=== PATIENT | male | born 1930 | race Caucasian/White ===

== ENCOUNTER 2016-11-26 04:57 | Emergency (ER) | payer OTHER ==
[~2016-11-26] VITALS: Ht 172.7 cm; Wt 69.9 kg
[~2016-11-26 04:57] MED LIST: ALBUTEROL0.09 MG/A1 INH; ALBUTEROL1.25 MG/3 INH; ASPIR 8181 MG PO; ATORVASTATIN CA40 MG PO; AUGMENTIN 875 M1 TAB PO; CALCIUM1 TAB PO; CLOPIDOGREL75 MG PO; FISH OIL CONCEN1 SGL; GABAPENTIN300 MG PO; LISINOPRIL20 MG PO; LOPRESSOR 25MG25 MG PO; MULTIVITAMIN1 SGL; PERCOCET 325 MG1 TA2 PO; PRILOSEC20 MG PO; PROTONIX 40MG T40 MG PO
--- NOTE | 2016-11-26 05:01 | ED UPPER/LOWER EXTREMITY COMPL ---
History of Present Illness General Chief Complaint: Lower Extremity Problems Stated Complaint: LEFT LEG,FOOT PAIN Source: patient Exam Limitations: no limitations Vital Signs & Intake/Output Vital Signs & Intake/Output Vital Signs Date Time Temp Pulse Resp B/P Pulse O2 O2 Flow FiO2 Ox Delivery Rate 11/26 1230 99.0 109 18 161/89 11/26 1230 99.0 109 18 161/89 11/26 1048 99.0 109 18 161/89 96 Room Air 11/26 0851 100.3 104 18 164/79 96 Room Air 11/26 0650 97.2 84 18 130/69 97 Room Air 11/26 0500 97.3 83 18 161/74 97 Room Air Allergies Coded Allergies: NO KNOWN ALLERGIES (06/20/12) Reconcile Medications Albuterol Sulfate (Albuterol Sulfate Hfa) 90 MCG HFA.AER.AD 2 PUFF INH Q4-6 PRN PRN SHORTNESS OF BREATH 90 MCG PER PUFF Albuterol Sulfate (Albuterol Sulfate Nebulizer Soln) 1.25 MG/3 ML VIAL.NEB 1 UNIT INH Q4P PRN sob AMOXICILLIN/POTASSIUM CLAV (Augmentin 875-125 Tablet) 875 MG/125 MG TAB 1 TAB PO BID INFECTION PREVENTION Aspirin (Ecotrin) 81 MG TABLET.DR 1 TAB PO DAILY blood thinner (Reported) Atorvastatin Calcium (Lipitor) 40 MG TABLET 1 TAB PO DAILY CHOLESTEROL ( Reported) Calcium/Sodium (Calcium) 1 TAB TAB BONE HEALTH (Reported) CLOPIDOGREL BISULFATE (Clopidogrel) 75 MG TABLET 1 TAB PO EOD CARDIAC STENT ( Reported) Gabapentin 300 MG CAPSULE 300 MG PO BID NEUROPATHY (Reported) Lisinopril 20 MG TABLET 1 TAB PO 3XW HTN (Reported) TAKE M-- Metoprolol Tartrate (Lopressor) 25 MG TABLET 1 TAB PO BID HEART HEALTH/BP ( Reported) MULTIVITAMIN (Multivitamins) 1 EACH CAPSULE HEALTH SUPPLEMENT (Reported) OMEGA-3 FATTY ACIDS (Fish Oil Concentrate) 1,000 MG CAPSULE SWELLING (Reported) Oxycodone HCl/Acetaminophen (Percocet 5-325 MG Tablet) 5 MG-325 MG TABLET 0.5 TAB PO 4XDP PRN PAIN TEN...[id number] Pantoprazole Sodium (Protonix) 40 MG TABLET.DR 1 TAB PO DAILY AC GERD Triage Nurses Notes Reviewed? yes Onset: Abrupt Duration: hour(s): Timing: recent history Severity: moderate Pain/Injury Location: Right: Foot. Method of Injury: unknown Modifying Factors: Improves With: rest. Worsens With: movement. Associated Symptoms: "Pain when I walk" HPI: 86 yo gentleman presents with left foot pain since last night. He notes the pain is at the bottom of his foot. He does not recall any trauma or injury. "But I might have twisted my foot at some point." He notes no swelling, warmrth, or focal bony pain. (PARDEEP CORLEY MD) Past History Travel History Traveled to [place] past 21 day No Medical History Any Pertinent Medical History? 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 SISTER (cancer but patient doesnt know what kind of cancer it is). Hx Contributory? No (PARDEEP CORLEY MD) Review of Systems Review of Systems Constitutional: Reports: no symptoms. EENTM: Reports: no symptoms. Respiratory: Reports: no symptoms. Cardiovascular: Reports: no symptoms. Gastrointestinal/Abdominal: Reports: no symptoms. Genitourinary: Reports: no symptoms. Musculoskeletal: Reports: no symptoms. Skin: Reports: no symptoms. Neurological/Psychological: Reports: no symptoms. Hematologic/Endocrine: Reports: no symptoms. Immunological: Reports: no symptoms. All Other Systems: Reviewed and Negative (PARDEEP CORLEY MD) Physical Exam Physical Exam General Appearance: well developed/nourished, mild distress Head: atraumatic Eyes: Bilateral: normal appearance. Ears, Nose, Throat: normal pharynx, normal ENT inspection, hearing grossly normal Neck: normal inspection, supple Cardiovascular/Respiratory: regular rate/rhythm Back: normal inspection Foot Left: focal pain at the insertion of the plantar fascia into the calcaneus. no tenderness at malleolus. ROM is normal. Skin: intact, normal color, warm/dry Lymphatic: no anterior cervical jie (PARDEEP CORLEY MD R.) Progress Differential Diagnosis: gout, sprain, tendon injury, plantar fasciitis Plan of Care: Orders Procedure Date/time Status Regular Diet 11/26 L Complete Regular Diet 11/26 D Active PT Evaluate & Treat 11/26 526 Active CASE MANAGEMENT CONSULT 11/26 526 Active Current Medications Sig/[place] Start time Last Medication Dose Stop Time Status Admin Aspirin 81 MG ONCE ONE 11/26 1200 CAN (Aspirin) 11/26 1201 Laboratory Tests 11/26/16 1143: Sodium Cancelled, Potassium Cancelled, Chloride Cancelled, Carbon Dioxide Cancelled, Anion Gap Cancelled, BUN Cancelled, Creatinine Cancelled, BUN/ Creatinine Ratio Cancelled, Glucose Cancelled, Calcium Cancelled, Total Bilirubin Cancelled, AST Cancelled, ALT Cancelled, Alkaline Phosphatase Cancelled, Total Protein Cancelled, Albumin Cancelled, Globulin Cancelled, Albumin/Globulin Ratio Cancelled, CBC w Diff Cancelled, WBC Cancelled, RBC Cancelled, Hgb Cancelled, Hct Cancelled, MCV Cancelled, MCH Cancelled, RDW Cancelled, Plt Count Cancelled, MPV Cancelled, PUBS MCHC Cancelled, Urine Color Cancelled, Urine Clarity Cancelled, Urine pH Cancelled, Ur Specific [place] Cancelled, Urine Protein Cancelled, Urine Ketones Cancelled, Urine Nitrite Cancelled, Urine Bilirubin Cancelled, Urine Urobilinogen Cancelled, Ur Leukocyte Esterase Cancelled, Ur Microscopic Cancelled, Urine Hemoglobin Cancelled, Urine Glucose Cancelled Diagnostic Imaging: Viewed by Me: Radiology Read. Discussed w/RAD: Radiology Read. Radiology Impression: left ankle... no fx. Hand-Off Endorsed To: JAGDISH PRIEST MD Endorsed Time: 0700 Pending: consult Comments: PATIENT: YANI WAY PRESENT AGE: 86 PATIENT ACCOUNT NO: [id number] : 32 LOCATION: [facility] ORDERING PHYSICIAN: PARDEEP CORLEY MD SERVICE DATE: 11/26/16 EXAM TYPE: RAD - XRY-ANKLE 3 OR MORE VIEWS L EXAMINATION: XR ANKLE, LEFT CLINICAL INFORMATION: Left ankle/foot pain. COMPARISON: None. TECHNIQUE: AP, lateral, and mortise views of the left ankle were obtained. FINDINGS: Soft tissues are swollen around the ankle. No fracture or malalignment. Ankle mortise is symmetric. No significant joint effusion. Calcific atherosclerosis is present within the arteries of the lower leg and ankle. IMPRESSION: 1. No acute fracture or malalignment. 2. Soft tissue swelling around the ankle. DICTATED BY: MARANDA VITAL MD DATE/TIME DICTATED:11/26/16616 INVESTMENT SALES ASSISTANT:ANIKET DATE/TIME TRANSCRIBED:11/26/16616 CONFIDENTIAL, DO NOT COPY WITHOUT APPROPRIATE AUTHORIZATION. <Electronically signed in Other Vendor System> SIGNED BY: MARANDA VITAL MD 11/26/16621 (JORY SHELL,PARDEEP Ahmadi) Comments: Able to ambulate with walker. Pain controlled with percocet, post op shoe. D/W Dr. Andrade tramadol for intermediate pain (JAGDISH PRIEST MD) Departure Departure Disposition: HOME OR SELF CARE Condition: Stable Clinical Impression Primary Impression: Plantar fasciitis of left foot Referred to [facility] as new patient No Departure Forms: Customer Survey General Discharge Information Comments pt has difficulty walking... pt merits pt/ot/casemanagement eval for safety. (JORY SHELL,PARDEEP Ahmadi) Departure Referrals: SHELLEY ANDRADE MD (PCP/Family) CAROLEE FRANCO DPM Call for podiatry follow up Prescriptions: Current Visit Scripts Oxycodone HCl/Acetaminophen (Percocet 5-325 MG Tablet) 0.5 TAB PO 4XDP PRN PAIN #10 TAB TEN...[id number] Tramadol HCl (Ultram) 1 TAB PO Q6PRN PRN moderate pain #30 TAB (JAGDISH PRIEST MD)
[2016-11-26] MEDS ORDERED: PERCOCET 5-3251 EACH PO (05:31)
--- NOTE | 2016-11-26 06:22 | RADIOLOGY REPORT ---
EXAMINATION: XR ANKLE, LEFT CLINICAL INFORMATION: Left ankle/foot pain. COMPARISON: None. TECHNIQUE: AP, lateral, and mortise views of the left ankle were obtained. FINDINGS: Soft tissues are swollen around the ankle. No fracture or malalignment. Ankle mortise is symmetric. No significant joint effusion. Calcific atherosclerosis is present within the arteries of the lower leg and ankle. IMPRESSION: 1. No acute fracture or malalignment. 2. Soft tissue swelling around the ankle.
[2016-11-26] MEDS ORDERED: ULTRAM50 M1 PO (13:33)
[2016-11-26 13:44] VITALS: BP 153/78
== END 2016-11-26 13:45 ==
LOC: ERH 04:57
DX: M72.2 Plantar fascial fibromatosis (principal); M79.672 Pain in left foot
CPT/HCPCS: 73610-LT; 97001-GP; 97110-GP; 97116-GP; 97161-GP; G8978-GP; G8979-GP; G8980-GP

== ENCOUNTER 2018-06-18 20:12 | Emergency (ER) | payer OTHER, MEDICARE ==
[~2018-06-18 20:12] MED LIST changes: +PERCOCET 5-3251 EACH PO; +ULTRAM50 M1 PO
[2018-06-18] MEDS ORDERED: CALTRATE 600 +1 EACH PO (21:23)
[2018-06-18] MEDS ORDERED: CLOPIDOGREL75 M1 PO (21:23)
[2018-06-18] MEDS ORDERED: FISH OIL 1,2001 EAC2 PO (21:23)
[2018-06-18] MEDS ORDERED: PERCOCET 5-3251 EACH PO (21:24)
[2018-06-18] MEDS ORDERED: PRINIVIL10 M1 PO (21:24)
[2018-06-18] MEDS ORDERED: VITAMIN B-121000 MC2 SL (21:25)
[2018-06-18] MEDS ORDERED: LIPITOR40 M1 PO (21:25)
[2018-06-18] MEDS ORDERED: METOPROLOL TART25 M1 PO (21:26)
[2018-06-18] MEDS ORDERED: GABAPENTIN300 M2 PO (21:26)
[2018-06-18] MEDS ORDERED: NITROSTAT0.4 M1 SL (21:27)
[2018-06-18] MEDS ORDERED: SENNA8.6 M3 PO (21:27)
[2018-06-18] MEDS ORDERED: ATHENOL325 MG PO (21:28)
--- NOTE | 2018-06-18 23:14 | ED THROAT/DENTAL COMPLAINT ---
History of Present Illness General Chief Complaint: Facial or Head Injury Stated Complaint: BIBA ORAL BLEEDING Source: patient, family, old records Exam Limitations: no limitations Vital Signs & Intake/Output Vital Signs & Intake/Output Vital Signs Date Time Temp Pulse Resp B/P B/P Pulse O2 O2 Flow FiO2 Mean Ox Delivery Rate 06/18 2338 84 18 151/78 Room Air 06/18 2036 98.8 100 18 160/86 95 Room Air Allergies Coded Allergies: NO KNOWN ALLERGIES (06/20/12) Reconcile Medications Acetaminophen (Athenol) 325 MG TABLET 2 TAB PO Q4H PRN PAIN (Reported) Atorvastatin Calcium (Lipitor) 40 MG TABLET 1 TAB PO DAILY CHOLESTEROL ( Reported) Calcium Carbonate/Vitamin D3 (Caltrate 600 + D Tablet) 600 MG-800 TABLET 1 TAB PO 0600 SUPPLEMENT (Reported) Clopidogrel Bisulfate (Clopidogrel) 75 MG TABLET 1 TAB PO DAILY BLOOD THINNER (Reported) Cyanocobalamin (Vitamin B-12) (Vitamin B-12) 1,000 MCG TAB.SUBL 1 TAB SL 0600 SUPPLEMENT (Reported) Gabapentin 300 MG CAPSULE 1 CAP PO BID UNKNOWN (Reported) Lisinopril (Prinivil) 10 MG TABLET 1 TAB PO DAILY BP (Reported) Metoprolol Tartrate 25 MG TABLET 1 TAB PO BID HEART/BP (Reported) Nitroglycerin (Nitrostat) 0.4 MG TAB.SUBL 1 TAB SL AD PRN CHEST PAIN ( Reported) 1st sign of attack; may repeat every 5 minutes until relief; if pain persists after 3 tablets in 15 minutes, prompt medical att [place]-3S/Dha/Epa/Fish Oil (Fish Oil 1,200 MG Softgel) 360-1,200MG CAPSULE 1 CAP PO 0600 SUPPLEMENT (Reported) Oxycodone HCl/Acetaminophen (Percocet 5-325 MG Tablet) 5 MG-325 MG TABLET 0.5 TAB PO 0600 PAIN (Reported) Sennosides (Senna) 8.6 MG TABLET 1 TAB PO QHS GI (Reported) Core Measure Meds Pre-Hospital plavix Triage Note: BIBA FROM [facility] FOR ORAL BLEEDING 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 PRESSURE DRESSING APPLIED, ON PLAVIX. PATIENT OFFERS NO COMPLAINTS. Triage Nurses Notes Reviewed? yes Onset: Just prior to arrival Duration: hour(s):, constant, continues in ED Timing: recent history Injury Environment: home Severity: moderate No Modifying Factors: none HPI: 8 hours prior to admission patient had 2 dental extractions #2, #5. Prior to admission the extractions began bleeding. He denies fever chills nausea vomiting diarrhea abdominal pain chest pain shortness breath headache dysuria rash. Past History Travel History Traveled to [place] past 21 day No Medical History Any Pertinent Medical History? see below for history Cardiovascular: CAD, hypertension, hyperlipidemia, right coronary artery stent placement in 2005 Gastrointestinal: diverticulitis, GERD, nonobstructing Schatzki's ring status post dilatation to 18 mm Renal: rright renal artery stenosis with stent placement Musculoskeletal: spinal stenosis Cancer(s): colon/rectal cancer Surgical History Surgical History: colectomy back surgery Psychosocial History Who do you live with Spouse Services at Home None What is your primary language German Tobacco Use: Quit >30 days ago Family History Family History, If Any: SISTER (ASD or VSD). SISTER (cancer but patient doesnt know what kind of cancer it is). Hx Contributory? No Review of Systems Review of Systems Constitutional: Reports: no symptoms. EENTM: Reports: see HPI. Respiratory: Reports: no symptoms. Cardiovascular: Reports: no symptoms. GI: Reports: no symptoms. Genitourinary: Reports: no symptoms. Musculoskeletal: Reports: no symptoms. Skin: Reports: no symptoms. Neurological/Psychological: Reports: no symptoms. Hematologic/Endocrine: Reports: no symptoms. Immunologic/Allergic: Reports: no symptoms. All Other Systems: Reviewed and Negative Physical Exam Physical Exam General Appearance: well developed/nourished, alert, awake, comfortable Head: atraumatic, normal appearance Eyes: Bilateral: normal appearance, PERRL, EOMI. Ears: Bilateral: canal normal, Tympanic normal. Nose: normal inspection Mouth/Throat: #2 sutures intact with oozing #5 friable tissues with oozing Neck: normal inspection, supple, full range of motion, trachea midline Cardiovascular/Respiratory: normal breath sounds, normal peripheral pulses, regular rate/rhythm, no respiratory distress Back: normal inspection, normal range of motion Neurologic/Psych: no motor/sensory deficits, awake, alert, normal mood/affect, manager power II-XII nml as tested Skin: intact, normal color, warm/dry Core Measures ACS in differential dx? No Sepsis Present: No Sepsis Focused Exam Completed? No Progress Differential Diagnosis: Extraction bleeding Plan of Care: attempted to suture #5 socket but gingiva friable unable to hold suture after lido/epi injected oozing ceased Kalgistat placed, no further bleeding Departure Departure Time of Disposition: 2329 Disposition: HOME OR SELF CARE Condition: Stable Clinical Impression Primary Impression: Gingival bleeding Secondary Impressions: H/O tooth extraction Referrals: Rema SHELL,Suresh Mendoza (PCP/Family) Additional Instructions: Follow up with your oral surgeon Stop plavix for10 days Departure Forms: Customer Survey General Discharge Information
[2018-06-18 23:38] VITALS: BP 151/78
== END 2018-06-19 00:08 ==
LOC: ERH 20:12
DX: K06.8 Other specified disorders of gingiva and edentulous alveolar ridge (principal)